=== PATIENT | female | born 1950 | race Caucasian/White ===

== ENCOUNTER 2019-08-08 07:53 | Day surgery (SDC) | payer MEDICARE ==
[2019-08-08] MEDS ORDERED: Midazolam* 1 MG/ML 2 ML VIAL (2 MG) ONE ×2 (09:17→09:42)
[2019-08-08 10:07] VITALS: BP 112/67
--- NOTE | 2019-08-08 11:36 | OP ---
DATE OF OPERATION/DATE OF DICTATION: 08/08/2019 - [facility] DATE OF : 1950. SURGEON: Dr. Sameer Sharma. ORAL SURGERY TECHNICIAN: None. ANESTHESIA: Topical with intravenous sedation. PRE-OP DIAGNOSIS: Cataract, right eye. POST-OP DIAGNOSIS: Cataract, right eye. OPERATIVE PROCEDURE: Phacoemulsification and cataract extraction with posterior chamber intraocular lens implant, right eye. COMPLICATIONS: None. BLOOD LOSS: None. DESCRIPTION OF PROCEDURE: The patient was brought to the operating room and received a small amount of intravenous sedation. A drop of Tetracaine was placed in her right eye. She was prepped and draped in the usual sterile fashion for ophthalmic surgery and attention was directed to the right eye where a speculum was placed. A paracentesis was created at the 11 o'clock position and 0.1 cc of 1 percent preservative-free Lidocaine was injected into the anterior chamber followed by DisCoVisc. The eye was digitally stabilized while a 2.75 mm keratome was used to create a triplanar clear corneal incision at the 9 o'clock position. A continuous curvilinear capsulorrhexis was created with a cystotome and Utrata forceps. BSS on a cannula was used to hydrodissect the lens from the capsule. Phacoemulsification was performed in a divide-and- conquer technique to create four fragments which were removed. Residual cortical material was removed with irrigation and aspiration. DisCoVisc was used to inflate the capsular bag and an AUOOTO 22.0 diopter lens was folded and inserted into the capsular bag. DisCoVisc was removed using irrigation and aspiration. BSS on a cannula was used to hydrate the corneal stroma and seal the wound. At the end of the case the pupil was round and the lens was centered. The eye was of normal pressure and the wound was water tight. The speculum was removed and topical Maxitrol ointment was placed on the surface of the eye. The eye was closed, patched and shielded and the patient was sent to the recovery room in stable condition with post operative instructions and follow-up appointment given. [id number]/CPS #: [id number] MTDD
[2019-08-08] MEDS ORDERED: Lidocaine 1% MPF ** 5 ML VIAL ONE (14:07)
[2019-08-08] MEDS ORDERED: Cyclopentolate 1% OPTH.SOL* 2 ML BTL ONE (14:07)
[2019-08-08] MEDS ORDERED: Neomycin/Polymy/Dex OPHTH.OIN* 3.5 GM ONE (14:07)
[2019-08-08] MEDS ORDERED: Ketorolac 0.5% OPHTH (NF) 0.5 % 5 ML BTL ONE (14:07)
[2019-08-08] MEDS ORDERED: Tetracaine 0.5% OPTH.SOL 4 ML* 1 DROP BTL ONE (14:07)
[2019-08-08] MEDS ORDERED: Tropicamide 1% OPTH.SOL* BTL ONE (14:07)
[2019-08-08] MEDS ORDERED: Phenylephrine OPHTH SOL 2.5%* 2 ML ONE (14:07)
== END 2019-08-08 10:52 | disposition home or self-care (01) ==
LOC: OREAST 07:53
PROVIDERS: ATTEND Ophthalmology
DX: H25.11 Age-related nuclear cataract, right eye (principal); E03.9 Hypothyroidism, unspecified; J45.909 Unspecified asthma, uncomplicated
CPT/HCPCS: A9270-GY; J2250; V2632

== ENCOUNTER 2019-08-15 07:55 | Day surgery (SDC) | payer MEDICARE ==
[~2019-08-15 07:55] MED LIST: Acetaminophen TAB* 325 MG PO PRN; Buffered Lidocaine 1% SYRIN* 1 ML/SYRINGE INTRADERM ONE
[2019-08-15] MEDS ORDERED: fentaNYL* 50 MCG/ML 2 ML VIAL (100 MCG VIAL) ONE (08:59)
[2019-08-15] MEDS ORDERED: Midazolam* 1 MG/ML 2 ML VIAL (2 MG) ONE ×2 (08:59→09:33)
[2019-08-15] MEDS ORDERED: Tetracaine 0.5% OPTH.SOL 4 ML* 1 DROP BTL ONE (09:33)
[2019-08-15] MEDS ORDERED: Phenylephrine OPHTH SOL 2.5%* 2 ML ONE (09:33)
[2019-08-15] MEDS ORDERED: Neomycin/Polymy/Dex OPHTH.OIN* 3.5 GM ONE (09:33)
[2019-08-15] MEDS ORDERED: Cyclopentolate 1% OPTH.SOL* 2 ML BTL ONE (09:33)
[2019-08-15] MEDS ORDERED: Ketorolac 0.5% OPHTH (NF) 0.5 % 5 ML BTL ONE (09:33)
[2019-08-15] MEDS ORDERED: Tropicamide 1% OPTH.SOL* BTL ONE (09:33)
[2019-08-15] MEDS ORDERED: Lidocaine 1% MPF ** 5 ML VIAL ONE (09:33)
[2019-08-15 09:53] VITALS: BP 107/56
--- NOTE | 2019-08-15 23:52 | OP ---
DATE OF OPERATION: 08/15/19 [facility] DATE OF : 52 SURGEON: Dr. Sameer Sharma. RESEARCH RECRUITER: None. ANESTHESIA: Topical with intravenous sedation. PRE-OP DIAGNOSIS: Cataract, left eye. POST-OP DIAGNOSIS: Cataract, left eye. OPERATIVE PROCEDURE: Phacoemulsification and cataract extraction with posterior chamber intraocular lens implant, left eye. COMPLICATIONS: None. BLOOD LOSS: None. DESCRIPTION OF PROCEDURE: The patient was brought to the operating room and received a small amount of intravenous sedation. A drop of Tetracaine was placed in left left eye. She was prepped and draped in the usual sterile fashion for ophthalmic surgery and attention was directed to the left eye where a speculum was placed. A paracentesis was created at the 5 o'clock position and 0.1 cc of 1 percent preservative-free Lidocaine was injected into the anterior chamber followed by DisCoVisc. The eye was digitally stabilized while a 2.75 mm keratome was used to create a triplanar clear corneal incision at the 3 o'clock position. A continuous curvilinear capsulorrhexis was created with a cystotome and Utrata forceps. BSS on a cannula was used to hydrodissect the lens from the capsule. Phacoemulsification was performed in a divide-and- conquer technique to create four fragments which were removed. Residual cortical material was removed with irrigation and aspiration. DisCoVisc was used to inflate the capsular bag and an AU00T0 22.0 diopter lens was folded and inserted into the capsular bag. DisCoVisc was removed using irrigation and aspiration. BSS on a cannula was used to hydrate the corneal stroma and seal the wound. At the end of the case the pupil was round and the lens was centered. The eye was of normal pressure and the wound was water tight. The speculum was removed and topical Maxitrol ointment was placed on the surface of the eye. The eye was closed, patched and shielded and the patient was sent to the recovery room in stable condition with post operative instructions and follow-up appointment given. [id number]/CPS #: [id number] LESLEY
== END 2019-08-15 10:06 | disposition home or self-care (01) ==
LOC: OREAST 07:55
PROVIDERS: ATTEND Ophthalmology
DX: H25.12 Age-related nuclear cataract, left eye (principal); E03.9 Hypothyroidism, unspecified; J45.909 Unspecified asthma, uncomplicated; Z88.0 Allergy status to penicillin; J45.40 Moderate persistent asthma, uncomplicated; R05 Cough; E55.9 Vitamin D deficiency, unspecified
CPT/HCPCS: A9270-GY; J2250; J3010; V2632